=== PATIENT | male | born 1965 | race Caucasian/White ===

== ENCOUNTER 2021-02-12 15:10 | Emergency (ER) | payer OTHER, SELFPAY ==
[2021-02-12 15:21] VITALS: BP 130/72; PULSE 84; RESP 16; TEMP 36.8; O2SAT 99; BMI 23.6
[2021-02-12 15:40] VITALS: BP 130/72; PULSE 84; RESP 26; TEMP 36.8; O2SAT 98; BMI 22.6
[2021-02-12 15:44] VITALS: BMI 22.6
--- NOTE | 2021-02-12 15:45 | XR_ITS ---
PROCEDURE: XR CHEST 2V CLINICAL HISTORY: cough COMPARISON: No exams were available for comparison FINDINGS: The cardiomediastinal silhouette and pulmonary vascularity are within normal limits. There is 11 by 6 mm nodular opacity in the right midlung at the 3rd interspace anteriorly. The remaining lungs are clear. Minimal wedging involves T7 and T8 which may be developmental. IMPRESSION: Indeterminate 11 mm nodular opacity right midlung Chest CT may provide further evaluation. Dictated by: Marcos Browne MD 02/12/2021 16:44 Marcos Browne MD in [place] 02/12/2021 16:44
--- NOTE | 2021-02-12 16:21 | HMH.EDUTC ---
[facility] [place] Disposition Condition on Discharge: Fair <Harley Bello - Last Filed: 02/12/21 16:53> Condition on Discharge: Good <Bebeto Martell - Last Filed: 02/12/21 18:51> Clinical Impression: Shortness of breath, Incidental lung nodule, greater than or equal to 8mm Disposition: Home, Self-Care Referrals: Provider,Referral, MD [Primary Care Provider] - Medical Decision Making - Medical Records Medical records reviewed: No: I reviewed the patient's medical records. - Juanjose Inquiry Pt receiving controlled substance: No - Radiology Data #1 Image(s): Chest Image Reviewed: Yes I reviewed the patient's radiology image <Harley Bello - Last Filed: 02/12/21 16:53> - Lab Data Result diagrams: 02/12/21 17:20 02/12/21 17:20 <Bebeto Martell - Last Filed: 02/12/21 18:51> Vital Signs: 02/12/21 15:21 02/12/21 15:40 02/12/21 17:24 Temperature 98.2 F 98.2 F 98.3 F Temperature Source Oral Oral Oral Pulse Rate [Right] 84 84 80 Respiratory Rate 16 26 H 16 Blood Pressure [Right Arm] 130/72 130/72 131/89 Blood Pressure Mean [Right Arm] 91 91 103 Blood Pressure Source [Right Arm] Automatic Cuff Automatic Cuff Blood Pressure Position [Right Arm] Sitting Sitting Sitting 02 Sat by Pulse Oximetry 99 98 98 Oxygen Delivery Method Room Air Room Air - Lab Data Lab Results 02/12/21 17:20: WBC 3.0 L, RBC 5.87, Hgb 18.5 H, Hct 53.2 H, MCV 90.5, MCH 31.5 H, MCHC 34.8, RDW 12.3, Plt Count 111 L, MPV 8.2, Neut % (Auto) 77.6, Lymph % (Auto) 13.0, [place] % (Auto) 8.3, Eos % (Auto) 0.5, Baso % (Auto) 0.6, Neut # (Auto) 2.3, Lymph # (Auto) 0.4 L, [place] # (Auto) 0.3, Eos # (Auto) 0.0, Baso # (Auto) 0.0 02/12/21 17:20: Sodium 136, Potassium 3.9, Chloride 99, Carbon Dioxide 26, Anion Gap 14.9, BUN 14, Creatinine 0.90, Estimated Creat Clear 84, Estimated GFR 88, Est GFR ( Amer) 106, Glucose 108 H, Calcium 8.9, Total Bilirubin 1.0, AST 57, ALT 37, Alkaline Phosphatase 115, Total Protein 8.1, Albumin 4.5, Globulin 3.6 H, Albumin/Globulin Ratio 1.3 Orders (Tests/Meds): ED MEDICATIONS Discontinued Medications Generic Name Dose Route Start Last Admin Trade Name Freq PRN Reason Stop Dose Admin Iopamidol 75 ml 02/12/21 18:13 02/12/21 18:13 Iopamidol-370 (76%);100ml Bottle IV 02/12/21 18:14 75 ml ONCE ONE Administration Sodium Chloride 10 ml 02/12/21 18:13 02/12/21 18:13 Sodium Chloride 0.9% 10ml Syr (Rad Only) IV 02/12/21 18:14 10 ml ONCE ONE Administration ORDERS Category Date Time Status Covid-19 Nasal PCR ([facility]) Routine Lab 02/12/21 15:40 Received Medical Decision Narrative: Patient came to ED as obtaining CT chest. There is no evidence of tumor or other lesion on CT of the chest however there is evidence of possible Covid pneumonia. This is most consistent with his symptoms. At this point he has 98% on room air for oxygen saturation in no acute distress. I discussed strict return precautions with him and otherwise discharged home. (Bebeto Martell) [facility] [place] HPI - General Mode of Arrival: Ambulatory Source of Information: Patient Limitations: No Limitations Description of Symptoms (Recalled from Triage Doc. by RN): to [facility] with c/o cough, sob, generalized aches, fatique, dizziness, fever x 3 day. HEENT Symptoms (Recalled from RN notes): No Resp Symptoms (Recalled from RN notes): Yes Skin Symptoms (Recalled from RN notes): No MS Symptoms (Recalled from RN notes): No Functional Status (Recalled from RN notes): na - History of Present Illness Provider Complaint: He states that for the past 2 days he has had cough, chest congestion, and being markedly short of breath at times. When he does almost any activity he gets more short of breath and he gets dizzy and feels like he might pass out. He has not have any syncope. He has a history of getting pneumonia about 5 years ago and he states he feels about the same today that he did then. He denies any known history of asthma or any lung disease.
[2021-02-12 17:24] VITALS: BP 131/89; PULSE 80; RESP 16; TEMP 36.8; O2SAT 98; BMI 21.2
--- NOTE | 2021-02-12 17:30 | CT_ITS ---
PROCEDURE INFORMATION: Exam: CT Chest With Contrast; Diagnostic Exam date and time: 02/12/21 05:30 PM Age: 55 years old Clinical indication: Patient HX: Cough x 2 days and nodule on cxr; Additional info: Nodule on chest xray TECHNIQUE: Imaging protocol: Diagnostic computed tomography of the chest with contrast. Radiation optimization: All CT scans at this facility use at least one of these dose optimization techniques: automated exposure control; mA and/or kV adjustment per patient size (includes targeted exams where dose is matched to clinical indication); or iterative reconstruction. Contrast material: ISOVUE; Contrast volume: 75 ml; Contrast route: IV; COMPARISON: CR XR CHEST 2V 02/12/21 03:46 PM FINDINGS: Lungs: Dependent subsegmental atelectasis bilateral lower lobes. Patchy ground-glass infiltrates peripherally bilaterally, characteristic of COVID-19. Pleural spaces: Focus of pleural based inflammation (series 3, image 21) likely accounts for the finding on plain film. Heart: Unremarkable. No cardiomegaly. No pericardial effusion. Aorta: Unremarkable. No aortic aneurysm. Lymph nodes: Unremarkable. No enlarged lymph nodes. Liver: Simple cyst left lobe of the liver. Fatty liver. Bones/joints: Unremarkable. No acute fracture. Soft tissues: Unremarkable. IMPRESSION: 1. Patchy ground-glass infiltrates peripherally bilaterally, characteristic of COVID-19. 2. Focus of pleural based inflammation (series 3, image 21) likely accounts for the finding on plain film.
[2021-02-12 17:40] LABS: Lymphocytes # 0.4 K/mm3 (0.7-4.5); Mean Corpuscular HGB Conc 34.8 g/dL (31.8-35.4); Platelet Count 111 K/mm3 (142-424)
[2021-02-12 17:42] LABS: Chloride 99 mmol/L (98-107); Potassium 3.9 mmoL/L (3.5-5.1); Sodium 136 mmol/L (136-145)
[2021-02-12 17:45] LABS: Alanine Aminotransferase 37 U/L (12-78); Albumin Level 4.5 g/dl (3.5-5.0); Albumin/Globulin Ratio 1.3 (1.1-1.8); Alkaline Phosphatase 115 U/L (38-126); Anion Gap 14.9 mEq/L (5-15); Aspartate Amino Transferase 57 U/L (17-59); Basophils % 0.6 % (0.1-2.0); Blood Urea Nitrogen 14 mg/dl (9-20); Calcium 8.9 mg/dl (8.4-10.2); Carbon Dioxide 26 mmol/L (22.0-30.0); Creatinine Clearance Estimated 84 mL/min (50-200); Eosinophils % 0.5 % (0.1-12.0); Estimated Glomerular Filt Rate 88 ml/min (>60); GFR (African American) 106 ML/MIN (>60); Globulin 3.6 g/dL (1.3-3.2); Glucose 108 mg/dl (74-100); Hematocrit 53.2 % (42.0-52.0); Mean Corpuscular Hemoglobin 31.5 pg (27.0-31.2); Mean Corpuscular Volume 90.5 fl (80-94); Mean Platelet Volume 8.2 fl (7.4-10.4); Monocytes # 0.3 K/mm3 (0.1-1.0); Monocytes % 8.3 % (1.7-9.3); Neutrophils # 2.3 K/mm3 (1.8-7.8); Neutrophils % 77.6 % (37.0-80.0); Red Blood Count 5.87 M/mm3 (4.60-6.20); Red Cell Distribution Width 12.3 % (11.5-17.5); Total Protein,Serum 8.1 g/dl (6.3-8.2)
[2021-02-12 17:54] LABS: Hemoglobin 18.5 g/dL (14.1-18.0)
[2021-02-12 19:03] VITALS: BP 166/95; PULSE 77; RESP 16; TEMP 37; O2SAT 97
== END 2021-02-12 19:04 | disposition home or self-care (01) ==
LOC: UTC 16:56 → ER 17:18
PROVIDERS: Emergency Provider Emergency Medicine
DX: U07.1 COVID-19 (principal); R91.1 Solitary pulmonary nodule; R42 Dizziness and giddiness
CPT/HCPCS: 71046; 71260; 80053; 85025; 99283; C9803; Q9967; U0003; U0005